=== PATIENT | female | born 2000 | race Caucasian/White ===

== ENCOUNTER 2022-03-19 17:52 | Emergency (ER) | payer MEDICAID ==
[~2022-03-19] VITALS: Ht 144.8 cm; Wt 54.0 kg
[2022-03-19 17:55] VITALS: BP 116/86
[2022-03-19] MEDS ORDERED: ONDANSETRON 4MG ODT PO ONE (20:00)
[2022-03-19] MEDS ORDERED: HYDROCODONE/ACETAMINOPHEN 5/325MG TABLET PO ONE (20:00)
[2022-03-19] MEDS ORDERED: PIPERACILLIN/TAZ 3.375G PREMIX 50 ML IV ONE (20:15)
[2022-03-19] MEDS ORDERED: VANCOMYCIN 1G PREMIX 200 ML IV SCH (21:00)
[2022-03-19 21:25] LABS: BASOPHILS % 0.5 % (0.0-2.0); EOSINOPHILS % 0.4 % (0.0-5.0); HEMATOCRIT. 40.4 % (36.0-48.0); HEMOGLOBIN. 13.7 g/dL (12.0-16.0); LYMPHOCYTES % 18.9 % (20.0-50.0); MEAN CORPUSCULAR HEMOGLOBIN 31.5 pg (28.0-32.0); MEAN CORPUSCULAR VOLUME 93.1 fL (81.0-99.0); MEAN PLATELET VOLUME 8.9 fl (7.4-10.4); MONOCYTES % 4.8 % (2.0-8.0); NEUTROPHILS % 75.4 % (40.0-76.0); PLATELET 311 x1000/uL (130-400); RED BLOOD CELL COUNT 4.35 mill/uL (4.2-5.4); RED CELL DISTRIBUTION WIDTH 13.6 % (11.6-14.6)
[2022-03-19] MEDS ORDERED: ACETAMINOPHEN 325MG TABLET PO ONE (22:15)
[2022-03-19] MEDS ORDERED: DIPHENHYDRAMINE 50MG/ML VIAL IV ONE (22:15)
[2022-03-19 22:29] LABS: CHLORIDE 109 mEq/L (98-107)
[2022-03-19] MEDS ORDERED: AMOX1TAB16 MT (23:06)
[2022-03-19] MEDS ORDERED: DOXY100C5 MT (23:06)
[2022-03-19] MEDS ORDERED: IBUP-2028 MT (23:06)
[2022-03-19] MEDS ORDERED: TRAM50TA MT (23:06)
== END 2022-03-19 23:40 | disposition home or self-care (01) ==
LOC: ER 17:52
DX: S51.052A Open bite, left elbow, initial encounter (principal); Z98.890 Other specified postprocedural states; W54.0XXA Bitten by dog, initial encounter; Y93.89 Activity, other specified; Y92.89 Other specified places as the place of occurrence of the external cause; Y99.8 Other external cause status
CPT/HCPCS: 36415; 73080; 80048; 81025; 85025; 87070; 87205; 93922; 96365; 96368; 96375; 99285; J1200; J2543; J3370; Q0162; Z7610

== ENCOUNTER 2022-03-22 15:26 | Emergency (ER) | payer MEDICAID ==
[~2022-03-22] VITALS: Ht 160 cm; Wt 66.0 kg
[~2022-03-22 15:26] MED LIST: AMOX1TAB16 MT; DOXY100C5 MT; IBUP-2028 MT; TRAM50TA MT
[2022-03-22 15:47] VITALS: BP 115/63
== END 2022-03-22 21:24 | disposition left against medical advice (07) ==
LOC: ER 15:26
DX: Z53.21 Procedure and treatment not carried out due to patient leaving prior to being seen by health care provider (principal)

== ENCOUNTER 2022-03-23 13:44 | Emergency (ER) | payer MEDICAID ==
[~2022-03-23] VITALS: Ht 167.6 cm; Wt 65.0 kg
[2022-03-23 13:59] VITALS: BP 113/73
[2022-03-23] MEDS ORDERED: DOXYCYCLINE HYCLATE 100MG CAPSULE PO ONE (15:30)
[2022-03-23] MEDS ORDERED: AMOXICILLIN/POTASSIUM CLAVULANATE 875/125MG TAB PO ONE (15:30)
== END 2022-03-23 15:46 | disposition home or self-care (01) ==
LOC: ER 13:44
DX: S51.052A Open bite, left elbow, initial encounter (principal); Z48.00 Encounter for change or removal of nonsurgical wound dressing; W54.0XXA Bitten by dog, initial encounter; Y93.89 Activity, other specified; Y92.89 Other specified places as the place of occurrence of the external cause; Y99.8 Other external cause status
CPT/HCPCS: 99283